=== PATIENT | male | born 1990 | race African-American/Black ===

== ENCOUNTER 2017-04-01 09:18 | Day surgery (SDC) | payer OTHER ==
[2017-04-01] MEDS ORDERED: LIDOCAINE 2% 5 ML SDV ONE ×2 (09:41→11:04)
[2017-04-01] MEDS ORDERED: BUPIVACAINE 0.5% 30 ML SDV ONE (09:41)
[2017-04-01] MEDS ORDERED: BACITRACIN 50,000 UNITS/10 ML SYR IRR ONE (09:42)
[2017-04-01] MEDS ORDERED: ceFAZolin 2 GM/DEXTROSE 100 ML IV ONE (10:17)
--- NOTE | 2017-04-01 10:24 | PDGENHP ---
History and Physical - Chief Complaint Right Achilles tendon rupture - History of Present Illness Oskar is a 26 year old male who ruptured his right Achilles tendon on 03/30/17 while playing basketball. He felt a pop in his Achilles as he stepped backward. He has weakness of the calf and Achilles. He presented to urgent care yesterday and was seen in the office afterwards where he was diagnosed with an acute Achilles tendon rupture and scheduled for surgery today 04/01/17. History Information - Allergies/Home Medication List Allergies/Adverse Reactions: No Known Allergies Allergy (Unverified 08/18/10 11:57) Home Medications: Denies All. 08/18/10 [Last Taken Unknown] I have personally reviewed and updated: family history, medical history, social history, surgical history - Past Medical History no pertinent PMH - Surgical History Reports: no pertinent surgical hx - Family History Positive for: hypertension - Social History Smoking Status: Never smoked Alcohol Use: Occasionally Drug Use: Marijuana Review of Systems ROS: 10pt was reviewed & negative except for what was stated in HPI & below Constitutional: Reports: no symptoms EENMT: Reports: no symptoms Cardiac: Reports: no symptoms Respiratory: Reports: no symptoms Gastrointestinal: Reports: no symptoms Physical Exam Temp Pulse Resp BP Pulse Ox 36.6 C 63 14 146/82 H 94 04/01/17 10:05 04/01/17 10:05 04/01/17 10:05 04/01/17 10:05 04/01/17 10:05 Constitutional: no apparent distress Cardiovascular: regular rate and rhythym, no murmur, rub, or gallop, pulses symmetric bilaterally Peripheral Pulses: 2+: dorsalis-pedis (R) Respiratory: no respiratory distress, no rales or rhonchi, clear to auscultation Gastrointestinal: normoactive bowel sounds, soft, non-tender abdomen Skin: warm, normal color Musculoskeletal: asymmetric calves, pain with ROM, other ((+) [place] test right calf. Palpable dell in the Achilles tendon. Weakness with right ankle plantarflexion. ) Neurologic: AAOx3, sensation intact bilaterally Assessment & Plan Assessment: Right Achilles tendon rupture Plan: Right Achilles tendon repair at [facility] at 04/01/17 under general anesthesia. He will keep the dressing clean, dry, and intact postoperatively. He will remain NWB with crutches x 4 weeks. Follow up with me in 1 week for wound check and dressing change.
[2017-04-01] MEDS: LR 1,000 ML IV SCH ×2 (10:34→14:19)
[2017-04-01] MEDS ORDERED: BUPIVACAINE/EPI 0.25% 30 ML SDV ONE (11:01)
[2017-04-01] MEDS ORDERED: DEXAMETHASONE 4 MG/ML VIAL ONE ×2 (11:04)
[2017-04-01] MEDS ORDERED: fentaNYL 100 MCG/2 ML INJ ONE ×3 (11:04→13:58)
[2017-04-01] MEDS ORDERED: MIDAZOLAM 2 MG/2 ML VIAL ONE (11:04)
[2017-04-01] MEDS ORDERED: PROPOFOL 200 MG/20 ML VIAL ONE ×2 (11:04→11:44)
[2017-04-01] MEDS ORDERED: ONDANSETRON 4 MG/2 ML VIAL ONE (11:05)
[2017-04-01] MEDS ORDERED: SUCCINYLCHOLINE CHLORIDE*ANESTHESIA ONLY*200 MG/10 ML SYR IVP ONE (11:05)
[2017-04-01] MEDS ORDERED: KETAMINE 100 MG/10 ML SYR ONE (11:39)
[2017-04-01] MEDS ORDERED: MIDAZOLAM 2 MG/2 ML VIAL IVP ONE (11:41)
[2017-04-01] MEDS ORDERED: ENALAPRILAT DIHYDRATE 1.25 MG/ML VIAL IVP PRN (11:43)
[2017-04-01] MEDS ORDERED: OXYCODONE/APAP 5/325 TAB PO PRN (11:43)
[2017-04-01] MEDS ORDERED: ONDANSETRON 4 MG/2 ML VIAL IVP PRN ×2 (11:43→13:23)
[2017-04-01] MEDS ORDERED: HYDROmorphONE/DILAUDID 1 MG/ML SYR IVP PRN (11:43)
[2017-04-01] MEDS ORDERED: NALOXONE HCL 0.4 MG/ML INJ IVP PRN (11:43)
[2017-04-01] MEDS ORDERED: PROMETHAZINE HCL 25 MG/ML INJ IVP PRN (11:43)
[2017-04-01] MEDS ORDERED: MEPERIDINE 25 MG/ML SYR IVP PRN (11:43)
[2017-04-01] MEDS ORDERED: ACETAMINOPHEN 500 MG TAB PO PRN (11:43)
[2017-04-01] MEDS ORDERED: LABETALOL HCL 50 MG/10 ML SYR IVP PRN (11:43)
[2017-04-01] MEDS ORDERED: DEXAMETHASONE 4 MG/ML VIAL IVP PRN (11:43)
[2017-04-01] MEDS ORDERED: LR 500 ML IV PRN (11:43)
[2017-04-01] MEDS ORDERED: HYDROCODONE/APAP 5/325 TAB PO PRN (11:43)
--- NOTE | 2017-04-01 11:43 | PDANEPAE ---
ANE Past Medical History - Pulmonary History Hx Oxygen in Use at Home: No Hx Sleep Apnea: No Sleep Apnea Screening Result - Last Documented: Positive - Endocrine History Hx Diabetes: No - Chronic Pain History Chronic Pain: No ANE Review of Systems - Exercise capacity METS (RN): 5 METS ANE Patient History - Allergies Allergies/Adverse Reactions: No Known Allergies Allergy (Unverified 08/18/10 11:57) - Home Medications Home Medications: Denies All. 08/18/10 [Last Taken Unknown] - NPO status NPO Since - Liquids (Date): 03/31/17 NPO Since - Liquids (Time): 12:00 NPO Since - Solids (Date): 03/31/17 NPO Since - Solids (Time): 12:00 - Smoking Hx Smoking Status: Never smoked - Alcohol Use Alcohol Use: Occasionally ANE Labs/Vital Signs - Vital Signs Blood Pressure: 146/82 Heart Rate: 63 Respiratory Rate: 14 O2 Sat (%): 94 Height: 182.88 cm Weight: 122.47 kg ANE Physical Exam - Airway Neck exam: FROM Mallampati Score: Class 3 Mouth exam: normal dental/mouth exam - Pulmonary Pulmonary: no respiratory distress, no rales or rhonchi, clear to auscultation - Cardiovascular Cardiovascular: regular rate and rhythym, no murmur, rub, or gallop ANE Anesthesia Plan Anesthesia Plan: general endotracheal anesthesia Regional Anesthesia: popliteal SNB
[2017-04-01] MEDS ORDERED: ESMOLOL HCL 100 MG/10 ML VIAL IV ONE (11:46)
[2017-04-01] MEDS ORDERED: ENALAPRILAT DIHYDRATE 1.25 MG/ML VIAL ONE (11:51)
[2017-04-01] MEDS ORDERED: ONDANSETRON DISINTEGRATING 4 MG TAB PO PRN (13:23)
--- NOTE | 2017-04-01 13:28 | POSTOPPROG ---
Post Op Note Date of Operation: 04/01/17 Surgeon: Sepideh Decker Anesthesiologist: Dr. Tse Anesthesia: GET(General Endotracheal) (General, popliteal block.l) Pre-op Diagnosis: Right Achilles tendon rupture Post-op Diagnosis: Right Achilles tendon rupture Procedure: Right Achilles tendon repair Findings: Complete rupture of the right Achilles tendon Inf/Abcess present in the surg proc area at time of surgery?: No Depth: Deep Incisional (Fascial) EBL: Minimal Complications: None
[2017-04-01] MEDS ORDERED: KETOROLAC 30 MG/1 ML SDV ONE (13:34)
[2017-04-01] MEDS: fentaNYL 100 MCG/2 ML INJ IVP PRN ×2 (14:03→14:17)
--- NOTE | 2017-04-01 14:04 | POSTANESTH ---
Post Anesthetic Evaluation Cardiovascular Status: Normal, Stable, Similar to Pre-Op Cond Respiratory Status: Normal, Stable, Similar to Pre-op Cond. Level of Consciousness/Mental Status: Can Participate in Eval, Mildly Sleepy, Arousable Pain Control: Inadeq, Add Tx Required Nausea/Vomiting Control: Adequate, Prn Tx Ordered Complications Possibly Related to Anesthesia: None Noted
[2017-04-01] MEDS ORDERED: OXYCODONE/APAP 5/325 TAB ONE (14:22)
[2017-04-01 14:42] VITALS: TEMP 97.9; O2SAT 92
[2017-04-01] MEDS: OXYCODONE/APAP 5/325 TAB PO PRN ×2 (14:43→15:23)
[2017-04-01 14:55] VITALS: BP 129/72; PULSE 66; RESP 16
--- NOTE | 2017-04-02 13:52 | GOP ---
[f rep st] OPERATIVE REPORT DATE OF OPERATION: 04/01/2017 SURGEON: Sepideh Decker DPM ANESTHESIA: General anesthesia with popliteal block. Local anesthesia: 20 cc of 0.5% Marcaine plain. ANESTHESIOLOGIST: Dr. Tse PREOPERATIVE DIAGNOSIS: Right Achilles tendon rupture. POSTOPERATIVE DIAGNOSIS: Right Achilles tendon rupture. PROCEDURE PERFORMED: Right Achilles tendon repair. FINDINGS: Complete rupture of the Right Achilles Tendon ESTIMATED BLOOD LOSS: Minimal. DESCRIPTION OF PROCEDURE: Under mild sedation, the patient was brought into the operating room and placed on the operating table in a prone position. A popliteal block was performed by Dr. Tse. A thigh tourniquet was placed about the right thigh with adequate padding underneath. The foot and leg were then scrubbed, prepped and draped in the usual aseptic manner. The right leg was then exsanguinated and tourniquet inflated to 325 mmHg. Attention was then directed to the right Achilles tendon where an incision was made from proximal to distal, just medial to midline over the Achilles tendon and across the palpable defect. The incision was deepened through subcutaneous tissue with care taken to identify and retract all vital neural and vascular structures. All bleeders were cauterized as necessary. The paratenon was then incised. The paratenon was then incised. The rupture was found to be complete of the Achilles tendon. At this point, all the "mop-ends" were debrided with sharp dissection. The distal end of the proximal stump was then primarily repaired of the "mop-ends" using a 3-0 Vicryl. At this point, the Arthrex PARS jig was then inserted and clamped down on the proximal stump of the Achilles tendon, inside the paratenon. The protocol for the Arthrex PARS kit was followed. The needles and the sutures were then all placed percutaneously through the skin, Achilles tendon and the jig. Once this was performed through the 5 points, the jig was then pulled through. It was found that the suture did not pass through the central part of the jig and in the tendon. The suture was then all removed and the procedure performed again with insurance to grab deeper into the tendon. The jig was replaced at a deeper position and clamped down on the proximal Achilles tendon. The needles and sutures were placed in all 5 holes. This was done ensuring to grab the proximal Achilles tendon. The suture was then pulled distally and was found to be tight in the tendon. This was also made sure to be inside the paratenon as well. Once this was performed, the appropriate technique was used to lock down the suture onto the tendon. The distal anchor points were made and incisions made at the posterior aspect of the calcaneus. Two stab incisions were made and dissected down to the level of the calcaneus. The suture passer was then used to go through the distal stump of the Achilles tendon and grab the suture. The suture passer was used to pull the suture toward the anchor points at the calcaneus. Once this was performed, the holes were drilled and tapped for the anchors into the calcaneus. The Arthrex BioComposite SwiveLock anchors were then inserted into the posterior calcaneus using the suture from the proximal Achilles tendon while holding the foot and ankle into a plantarflexed position. This nicely reapproximated the Achilles tendon rupture. The suture was then cut after the anchors were placed. The wounds were all irrigated with copious sterile saline Ancef irrigation. The tourniquet was deflated early due to a venous tourniquet. The rupture site was then primarily repaired with 3-0 Vicryl and 2-0 PDS. The subcutaneous tissue was repaired with 3-0 Vicryl and 4-0 Monocryl. The skin was then repaired with 4-0 Prolene in horizontal suture technique. Xeroform, 4 x 4 gauze, [place], cast padding, posterior splint, and Saqib wrap were applied. The patient was then transferred to the recovery room with vital signs stable and vascular status intact. Following a period of postoperative monitoring, he will be discharged home. Advised to ice and elevate his foot. He is advised to keep the dressing clean, dry and intact. He is nonweightbearing for the next 4 weeks. He will follow up with me in the next week for a wound check and dressing change. MATERIALS: Arthrex Achilles Midsubstance SpeedBridge into the calcaneus with 4.75 mm x 19.1 mm BioComposite SwiveLock anchors x2, #2 FiberWire x3. HEMOSTASIS: Pneumatic thigh tourniquet at 325 mmHg for 46 minutes. /[id number]/MODL MTDD
== END 2017-04-01 15:28 | disposition home or self-care (01) ==
LOC: FSGY 09:18
PROVIDERS: ATTEND Podiatrist Foot & Ankle Surgery
PROC: 0LQN0ZZ Repair Right Lower Leg Tendon, Open Approach (ICD-10-PCS; principal; 2017-04-01 10:45)
DX: S86.011A Strain of right Achilles tendon, initial encounter (principal); X50.3XXA Overexertion from repetitive movements, initial encounter; Y92.310 Basketball court as the place of occurrence of the external cause; Y93.67 Activity, basketball
CPT/HCPCS: C1713; J0330; J0690; J1100; J1885; J2250; J2405; J2704; J3010